=== PATIENT | male | born 1955 | race Caucasian/White ===

== ENCOUNTER 2017-04-22 08:54 | Day surgery (SDC) | payer MEDICARE, MEDICAID ==
[~2017-04-22] VITALS: Ht 167.6 cm; Wt 69.8 kg
[~2017-04-22 08:54] MED LIST: ADULT LOW DOSE81 MG PO; ALEVE220 M1 PO; HYDREA500 MG PO; IBUPROFEN IB200 MG PO; LISINOPRIL20 MG PO; NORCO 10-325 T1 EACH PO; NORCO 7.5-3251 EACH PO; ULTRAM50 MG PO
--- NOTE | 2017-04-24 16:42 | OR ---
[facility] [address], [place] [address] Signed DATE OF OPERATION: 04/22/2017 SURGEON: Madison Ventura MD PREOPERATIVE DIAGNOSES: 1. Personal history of colonic polyps in 2007. 2. Sigmoid diverticulosis. 3. Recent episode of left lower quadrant abdominal pain. POSTOPERATIVE DIAGNOSES: 1. 4 mm polyps at hepatic flexure, 40 cm and 25 cm. 2. Minimal sigmoid diverticulosis. PROCEDURE: Colonoscopy with hot biopsy. ESTIMATED BLOOD LOSS: None. INDICATIONS: Zen is a 61-year-old gentleman who has a personal history of colonic polyps back to 2007. His last colonoscopy was in 2014. He is known to have minimal sigmoid diverticulosis as well. He returns every 5 years for colonoscopy. He has been following with his manager women for his polycythemia vera. He developed left lower quadrant abdominal pain twice, so he had a CT scan ordered. There was some mild thickening in the descending and sigmoid colon. No obvious diverticula were seen. It was not clear if this was incomplete distention of the colon versus mild diverticulitis. Consequently, he was asked to see me for a followup colonoscopy. He said he took no antibiotics and he said his pain is resolved. There is no family history of colon cancer or polyps. I gave Zen a pamphlet on colonoscopy and we reviewed the nature of the test along with the risks including, but not limited to gas bloating, crampy abdominal pain, bleeding, perforation requiring surgery, and missed diagnosis. We also discussed the need for IV conscious sedation. He had expressed understanding and wished to proceed. PROCEDURE NOTE: Zen was taken into our endoscopy suite and placed in the left lateral decubitus position. He was given 5 mg of Versed and 125 mcg of fentanyl. A digital rectal exam was performed and this showed some induration to his prostate gland. The adult colonoscope was then introduced and advanced all around into the cecum under direct visualization of camera without difficulty. His prep was good. The scope was then Electronically Signed By: MADISON VENTURA MD 04/24/17 1642 PATIENT NAME: ZEN CASTRO OPERATIVE REPORT DATE OF : 53 PHYSICIAN: MADISON VENTURA MD REPORT #: [id number] REPORT IS CONFIDENTIAL AND NOT TO BE RELEASED WITHOUT AUTHORIZATION [address] [address] Signed slowly withdrawn and he had the above polyps removed easily with hot biopsy forceps. We could also see that he has a few diverticula in the sigmoid colon. They were moderate in size, few in number and scattered about. The rectum itself was unremarkable. Upon retroflexion of the scope, no additional pathology was noted. After this, the gas was suctioned out. The colonoscope removed. Zen tolerated the procedure quite well. RECOMMENDATIONS: Zen will follow up in my office in 7 to 14 days to review his results. Madison Ventura MD ALB/MODL /[id number] cc: MD Syed Franklin DO Electronically Signed By: MADISON VENTURA MD 04/24/17 1642 PATIENT NAME: ZEN CASTRO OPERATIVE REPORT DATE OF : 53 PHYSICIAN: MADISON VENTURA MD REPORT #: [id number] REPORT IS CONFIDENTIAL AND NOT TO BE RELEASED WITHOUT AUTHORIZATION
== END 2017-04-22 11:50 | disposition home or self-care (01) ==
LOC: DS 08:54 → OPS 08:54
PROVIDERS: Colon & Rectal Surgery
PROC: 0DBE8ZX Excision of Large Intestine, Via Natural or Artificial Opening Endoscopic, Diagnostic (ICD-10-PCS; 2017-04-22)
PROC: 0DBL8ZX Excision of Transverse Colon, Via Natural or Artificial Opening Endoscopic, Diagnostic (ICD-10-PCS; principal; 2017-04-22 10:30)
DX: D12.3 Benign neoplasm of transverse colon (principal); D12.6 Benign neoplasm of colon, unspecified; K63.5 Polyp of colon; K57.30 Diverticulosis of large intestine without perforation or abscess without bleeding; M19.90 Unspecified osteoarthritis, unspecified site; K21.9 Gastro-esophageal reflux disease without esophagitis; I10 Essential (primary) hypertension; Z79.82 Long term (current) use of aspirin; Z79.899 Other long term (current) drug therapy; Z86.010 Personal history of colon polyps; Z98.890 Other specified postprocedural states; Z88.5 Allergy status to narcotic agent
CPT/HCPCS: 88305; 99152; 99153; J2250; J3010; J7120

== ENCOUNTER 2019-08-17 19:18 | Emergency (ER) | payer MEDICARE, MEDICAID ==
[~2019-08-17] VITALS: Ht 167.6 cm; Wt 70.0 kg
== END 2019-08-17 21:08 | disposition home or self-care (01) ==
LOC: ED 19:18
DX: S61.431A Puncture wound without foreign body of right hand, initial encounter (principal); I10 Essential (primary) hypertension; Z79.899 Other long term (current) drug therapy; X58.XXXA Exposure to other specified factors, initial encounter
CPT/HCPCS: 90471; 90715; 99283-25

== ENCOUNTER 2023-04-03 07:08 | Emergency (ER) | payer MEDICARE ==
--- OUTSIDE RECORDS SUMMARY | 2023-04-03 07:17 | XMS ---
PreManage Notification: DEENA CASTRO Security Lead Business Systems Analyst Events No recent Security Events currently on file CRITERIA MET - [facility] - 2 Visits in 30 Days CARE PROVIDERS DYLAN COOPER Physician Current PHONE: Unknown Tyler has no Care Guidelines for this patient. EJason VISIT COUNT (12 MO.) 2 [facility] TOTAL 2 NOTE: Visits indicate total known visits. ED/UCC VISIT TRACKING (12 MO.) 04/03/2023 07:08 [facility] TYPE: Emergency COMPLAINT: - DIZZINESS 03/27/2023 13:09 [facility] OR TYPE: Emergency COMPLAINT: - FALL INPATIENT VISIT TRACKING (12 MO.) No inpatient visits to display in this time frame [email or web address]
[2023-04-03 07:45] LABS: HEMATOCRIT 47.1 % (35.0-50.0); HEMOGLOBIN 16.7 g/dL (12.0-18.0); MCH 42.9 (27-36); MCHC 35.5 g/dl (30-36); PLATELET COUNT 89 K/uL (140-440); RBC 3.89 M/ul (4.3-5.7); RDW 16.7 (10.5-15.0)
[2023-04-03 07:59] LABS: ALBUMIN 3.5 g/dL (3.4-5.0); ALBUMIN/GLOBULIN RATIO 1.09 (1.1-2.4); ANION GAP 12.8 (7-21); BILIRUBIN, TOTAL 1.4 ng/dL (0.2-1.0); BUN/CREATININE RATIO 5.81 (6.0-28.6); CALCIUM 8.5 mg/dL (8.5-10.1); CREATININE, SERUM 0.86 mg/dL (0.70-1.30); POTASSIUM 3.8 mmol/L (3.5-5.1); PROTEIN, TOTAL 6.7 g/dL (6.4-8.2)
[2023-04-03 08:02] LABS: BASOPHILS, MANUAL DIFF 2; EOSINOPHILS, MANUAL DIFF 1; LYMPHOCYTES, MANUAL DIFF 36; MONOCYTES, MANUAL DIFF 8; NEUTROPHILS, MANUAL DIFF 53
[2023-04-03 08:34] VITALS: BP 132/82
== END 2023-04-03 08:34 | disposition home or self-care (01) ==
LOC: ED 07:08
PROVIDERS: Emergency Medicine
DX: R42 Dizziness and giddiness (principal); D45 Polycythemia vera; I10 Essential (primary) hypertension; Z88.8 Allergy status to other drugs, medicaments and biological substances; Z79.899 Other long term (current) drug therapy; Z79.82 Long term (current) use of aspirin
CPT/HCPCS: 36415; 70450; 80053; 85025; 99284-25